=== PATIENT | male | born 1935 | race Caucasian/White ===

== ENCOUNTER 2017-09-17 08:15 | Outpatient (RCR) ==
--- NOTE | 2017-08-31 16:52 | RS.OPPTEV2 ---
Date of Note: 08/30/17 Visit #: 1 Date of Evaluation: 08/30/17 Payer Source: MEDICARE Surgery Performed?: No Treatment Diagnosis: balance problem History of Condition/Mechanism of Injury:: pt had a fall in [place] approx 4 weeks ago, pt has had increased difficulty with balance lately Prior Level of Function.....Patient was independent with: ADL's, Self Care, Ambulation/Mobility Functional Limitations: Bending, Squatting, Ambulation, Community Access/ Integration Current Subjective/complaints:: pt states he has had increased difficulty with balance as well as amb since his fall. States his arthritis "moves around" and sometimes limits his ability to stand. Treatment Side (optional): N/A *Precautions: fall precautions Medical History Medical History: Hypertension, Arthritis Surgical History: Tonsillectomy Smoking Status: Never smoker Hx Home Medications: bumetanide, cardizem, colace, lisinopril, magox, tobrol xl , k dur, xarelto Patient's Goals: be stronger, not fall Functional Outcome Measure Tinetti: 20 (29%) - G Codes & Severity Modifier G Codes & Modifier: mobility current CJ. mobility goal CI Source of G Code score: tinetti Observation - Observation Inspection: hamstring tightness BLE Posture: Forward Head, Rounded Shoulders, Increased Thoracic Kyphosis, Decreased Lumbar Lordosis Handedness: Right Gait - Gait Pattern General Gait Pattern Observation: Crouched Gait, Decrease Stride Lngth (R), Decrease Stride Lngth (L) Gait Comments: pt amb with slight increased lat sway. General Range of Motion: WFL's BUE and BLE Muscle Strength: BUE 4+/5. BLE hip flex 4/5, knee flex/ext 4+/5, ankle Df/PF 4+ /5 Palpation Palpation Findings: None/Normal Sensation - Sensation Right Upper Extremity: Intact/Normal Left Upper Extremity: Intact/Normal Right Lower Extremity: Intact/Normal Left Lower Extremity: Intact/Normal Balance - Sitting Balance Static Sitting Balance: Good Dynamic Sitting Balance: Good - Standing Balance Static Standing Balance: Fair Dynamic Standing Balance: Poor - Comments Balance Assessment Comments: TUG score 23 secs, Tinetti score 20/28 Interventions - Exercise/Activities/Manual Therapy Exercises/Activities: pt performed resisted hip flex, isometric hip add, LAQ, seated hip flex, standing hip abd, hip ext, short squats. Manual Therapy: n/a HOME EXERCISE PROGRAM: pt given written hep including: resisted hip flex, isometric hip add, LAQ, seated hip flex, standing: hip abd, hip ext, short squats - Charges Timed Code Treatment Minutes: 52 Total Treatment Time: 58 Procedures billed for this date of service:: eval med EVALUATION COMPLEXITY LEVEL EVALUATION COMPLEXITY LEVEL: HISTORY: Medium (OA, HTN, age, falls), EXAM OF BODY SYSTEMS: Medium (posture, balance, gait, strength,), CLINICAL PRESENTATION : Medium (evolving), CLINICAL DECISION MAKING: Medium Assessment Assessment: pt presents with decreased balance, increased risk of falls, decreased gait ability , decreased strength. Feel pt would benefit from skilled pT for therex for LE strengthening, balance as well as gait training to improve functional mobility Patient Education: Activity Modification, Education of Plan of Care Rehab Potential: Good Short Term Goals Goal #1: pt amb in dept with cane with no LOB and improved posture Goal to be met by: 09/13/17 Goal #2: pt with improved dyn stand balance as noted by TUG < 23 Goal to be met by: 09/13/17 Goal #3: pt with improved strength BLE 4 to 4+/5 Goal to be met by: 09/13/17 Longterm Goals Goal #1: pt amb community distance with AAD with no LOB and improved posture Goal to be met by: 09/27/17 Goal #2: pt with improved dyn stand balance as noted by tinetti score of 24/28 Goal to be met by: 09/27/17 Goal #3: pt independent with HEP Goal to be met by: 09/27/17 Goal #4: pt to report no falls since eval Goal to be met by: 09/27/17 Plan - Treatment to be Provided Procedures: Therapeutic Exercises, Gait Training, Neuromuscular Rehab, Patient Education Modalities: No Modalities - Treatment Plan Frequency: 2-3x week Duration: 4 weeks ORDER # VISITS AND/OR THROUGH DATE: 09/28/17 - Treatment Code (1) Balance problems Code(s): R26.89 - OTHER ABNORMALITIES OF GAIT AND MOBILITY (2) Muscle weakness Code(s): M62.81 - MUSCLE WEAKNESS (GENERALIZED) (3) Frequent falls Code(s): R29.6 - REPEATED FALLS
--- NOTE | 2017-09-03 16:23 | RS.OPPTDN ---
Subjective Date of Note: 09/03/17 Visit #: 2 Date of Evaluation: 08/30/17 Payer Source: MEDICARE Treatment Diagnosis: balance problem Current Subjective/complaints:: Patient reports he is using cane or walker when out in the community. States he has tried to work on initial HEP. *Precautions: fall precautions Interventions - Exercise/Activities/Manual Therapy Exercises/Activities: Patient performed isometric hip flex, isometric hip add, alt hip flex with 3#, SAQ 3#, SLR, and hip abd, all 2s/10reps. Also, red TB for resistive hip abd and hip add in hook-lying, and ankle df, all 2s/10reps. In sitting, AP and hip flex. Standing short squats, toe-ups, high side-stepping, and grapevine walking, all at handrail. Unilateral standing to challenge balance with use of handrail. Ends with stationary bike x 3 1/2mins (not in total time). Total minutes of Exercise: EX 28mins NEURO 12mins Manual Therapy: n/a HOME EXERCISE PROGRAM: pt given written hep including: resisted hip flex, isometric hip add, LAQ, seated hip flex, standing: hip abd, hip ext, short squats - Charges Timed Code Treatment Minutes: 40mins Total Treatment Time: 44mins Procedures billed for this date of service:: EX2, NEURO Assessment: Patient attentive to all instruction and seems motivated to progress with exercise and balance activities. Patient Education: Home Exercise Program, Home Safety, Activity Modification Patient demonstrates compliance with HEP?: Yes Short Term Goals Goal #1: pt amb in dept with cane with no LOB and improved posture Goal to be met by: 09/13/17 Progress towards Goal:: Progressing Goal #2: pt with improved dyn stand balance as noted by TUG < 23 Goal to be met by: 09/13/17 Goal #3: pt with improved strength BLE 4 to 4+/5 Goal to be met by: 09/13/17 Residential Goals Goal #1: pt amb community distance with AAD with no LOB and improved posture Goal to be met by: 09/27/17 Goal #2: pt with improved dyn stand balance as noted by tinetti score of 24/28 Goal to be met by: 09/27/17 Goal #3: pt independent with HEP Goal to be met by: 09/27/17 Progress towards goal: Progressing Goal #4: pt to report no falls since eval Goal to be met by: 09/27/17 Plan PLAN OF CARE EXPIRES ON:: 09/27/17 ORDER # VISITS AND/OR THROUGH DATE: 09/27/17 PLAN: Progress with strengthening and balance exercise to increase patients functional activity level.
--- NOTE | 2017-09-05 10:03 | RS.OPPTDN ---
Subjective Date of Note: 09/05/17 Visit #: 3 Date of Evaluation: 08/30/17 Payer Source: MEDICARE Treatment Diagnosis: balance problem Current Subjective/complaints:: Patient reports he is doing well with exercises and has had no LOB this week. States he is working on HEP. *Precautions: fall precautions Interventions - Exercise/Activities/Manual Therapy Exercises/Activities: In sitting, LAQ and hip flexion with 4# to each ankle, 2s/ 10reps each. In supine, isometric hip flex, isometric hip add, alt hip flex increased to 4#, SAQ increased to 4#, SLR, and hip abd, all 2s/10reps. Also, red TB for resistive hip abd and hip add in hook-lying, 2s/10reps each. Isometric trunk rotation in hook-lying with ball between knees. In sitting, AP and hip flex. Neuro: Balance [place] for Limits of Stability, Maze Control, Random Control, and Catch Game. Standing and reaching for 2# ball, including overhead. Standing short squats, hip abd, and grapevine walking, all at handrail. Walks with cane and CREOSOTING ENGINEER on straight line on floor, then backward walking. Unilateral standing to challenge balance with use of handrail. Total minutes of Exercise: EX 23mins, NEURO 20mins Manual Therapy: n/a HOME EXERCISE PROGRAM: pt given written hep including: resisted hip flex, isometric hip add, LAQ, seated hip flex, standing: hip abd, hip ext, short squats - Objective Findings Observations,measurements,etc.: Patient walks into department and carries cane part of the time. No LOB noted. - Charges Timed Code Treatment Minutes: 43mins Total Treatment Time: 45mins Procedures billed for this date of service:: EX2, NEURO Assessment: Patient able to advance with high level balance activity. Patient Education: Home Safety, Activity Modification Patient demonstrates compliance with HEP?: Yes Short Term Goals Goal #1: pt amb in dept with cane with no LOB and improved posture Goal to be met by: 09/13/17 Progress towards Goal:: Partially Met Goal #2: pt with improved dyn stand balance as noted by TUG < 23 Goal to be met by: 09/13/17 Goal #3: pt with improved strength BLE 4 to 4+/5 Goal to be met by: 09/13/17 Progress towards Goal:: Progressing Latex Fashions Designer Goals Goal #1: pt amb community distance with AAD with no LOB and improved posture Goal to be met by: 09/27/17 Progress towards goal: Progressing Goal #2: pt with improved dyn stand balance as noted by tinetti score of Goal to be met by: 09/27/17 Goal #3: pt independent with HEP Goal to be met by: 09/27/17 Progress towards goal: Progressing Goal #4: pt to report no falls since eval Goal to be met by: 09/27/17 Progress towards goal: Partially Met (Reports no falls this week) Plan PLAN OF CARE EXPIRES ON:: 09/27/17 ORDER # VISITS AND/OR THROUGH DATE: 09/27/17 PLAN: Progress strengthening and balance exercise to increase patients safety and independence with functional activity level.
--- NOTE | 2017-09-07 11:57 | RS.OPPTDN ---
Subjective Date of Note: 09/07/17 Visit #: 4 Date of Evaluation: 08/30/17 Payer Source: MEDICARE Treatment Diagnosis: balance problem Current Subjective/complaints:: Patient reports doing well with ambulation this week. Denies falls or LOB. States he continues to walk with cane in public. *Precautions: fall precautions Interventions - Exercise/Activities/Manual Therapy Exercises/Activities: In sitting, LAQ and hip flexion with 4# to each ankle, 2s/ 10reps each. In supine, isometric hip flex, isometric hip add, alt hip flex increased to 4#, SAQ increased to 4#, SLR, and hip abd, all 2s/10reps. Red theraband for ankle df and resistive hip abd in hook-lying, 2s/10reps each. Isometric trunk rotation in hook-lying with ball between knees. In sitting, overhead shoulder flex with ball. Green theraband for scap retraction. Neuro: Balance [place] for Limits of Stability, Maze Control, Random Control, Catch Game, and Static balance. Walking over short step and stepping over small objects with use of cane and PINKED EDGE SEWING MACHINE OPERATOR. Standing short squats, hip abd, and grapevine walking, all at handrail. Unilateral standing to challenge balance with use of handrail. Total minutes of Exercise: EX 25mins, NEURO 15mins Manual Therapy: n/a HOME EXERCISE PROGRAM: pt given written hep including: resisted hip flex, isometric hip add, LAQ, seated hip flex, standing: hip abd, hip ext, short squats - Charges Timed Code Treatment Minutes: 40mins Total Treatment Time: 42mins Procedures billed for this date of service:: EX2, NEURO Assessment: Patient demos fair to good balance with advanced balance activities today. He is working on HEP and reports no falls or LOB at home. Patient Education: Home Exercise Program, Home Safety, Activity Modification Patient demonstrates compliance with HEP?: Yes Short Term Goals Goal #1: pt amb in dept with cane with no LOB and improved posture Goal to be met by: 09/13/17 Progress towards Goal:: Partially Met Goal #2: pt with improved dyn stand balance as noted by TUG < 23 Goal to be met by: 09/13/17 Goal #3: pt with improved strength BLE 4 to 4+/5 Goal to be met by: 09/13/17 Progress towards Goal:: Progressing Towboat Pilot Goals Goal #1: pt amb community distance with AAD with no LOB and improved posture Goal to be met by: 09/27/17 Progress towards goal: Partially Met Goal #2: pt with improved dyn stand balance as noted by tinetti score of Goal to be met by: 09/27/17 Goal #3: pt independent with HEP Goal to be met by: 09/27/17 Progress towards goal: Partially Met Goal #4: pt to report no falls since eval Goal to be met by: 09/27/17 Progress towards goal: Partially Met (Reports no falls this week) Plan PLAN OF CARE EXPIRES ON:: 09/27/17 ORDER # VISITS AND/OR THROUGH DATE: 09/27/17 PLAN: Continue exercise and balance work progressing toward safe and independent.
--- NOTE | 2017-09-10 11:53 | RS.OPPTDN ---
Subjective Date of Note: 09/10/17 Visit #: 5 Date of Evaluation: 08/30/17 Payer Source: MEDICARE Treatment Diagnosis: balance problem Current Subjective/complaints:: Patient reports he is doing better with walking. He reports no recent falls. *Precautions: fall precautions Interventions - Exercise/Activities/Manual Therapy Exercises/Activities: In sitting, LAQ and hip flexion with 4# to each ankle and isometric hip add with ball, 2s/10reps each. In supine, isometric hip flex, isometric hip add, alt hip flex 4#, SAQ 4#, SLR, and hip abd, all 2s/10reps. Increased to green theraband for ankle df and resistive hip abd in hook-lying, 2s/10reps each. Isometric trunk rotation in hook-lying with ball between knees. In sitting, overhead shoulder flex with ball, and horizontal abd to both sides, 2s/5reps each. Increased to blue theraband for scap retraction, 2s/10reps. Standing hip abduction. Neuro: Balance [place] for Limits of Stability, Maze Control, Random Control, Catch Game, and Static balance. Walking over short step and across foam for balance work, with use of cane and REPAIRER HANDTOOLS. Standing short squats, and toe-ups while standing on foam at handrail. Total minutes of Exercise: EX 25mins, Manual Therapy: n/a HOME EXERCISE PROGRAM: pt given written hep including: resisted hip flex, isometric hip add, LAQ, seated hip flex, standing: hip abd, hip ext, short squats - Charges Timed Code Treatment Minutes: 45mins Total Treatment Time: 45mins Procedures billed for this date of service:: EX2, NEURO Assessment: Patient responds well to progression of high level balance activities. Patient Education: Home Exercise Program, Home Safety Patient demonstrates compliance with HEP?: Yes Short Term Goals Goal #1: pt amb in dept with cane with no LOB and improved posture Goal to be met by: 09/13/17 Progress towards Goal:: Met Goal #2: pt with improved dyn stand balance as noted by TUG < 23 Goal to be met by: 09/13/17 Progress towards Goal:: Progressing Goal #3: pt with improved strength BLE 4 to 4+/5 Goal to be met by: 09/13/17 Progress towards Goal:: Progressing Alf Goals Goal #1: pt amb community distance with AAD with no LOB and improved posture Goal to be met by: 09/27/17 Progress towards goal: Partially Met Goal #2: pt with improved dyn stand balance as noted by tinetti score of Goal to be met by: 09/27/17 Goal #3: pt independent with HEP Goal to be met by: 09/27/17 Progress towards goal: Partially Met Goal #4: pt to report no falls since eval Goal to be met by: 09/27/17 Progress towards goal: Partially Met (Reports no falls this week) Plan PLAN OF CARE EXPIRES ON:: 09/27/17 ORDER # VISITS AND/OR THROUGH DATE: 09/27/17 PLAN: Continue to progress strengthening and balance activity, working toward safe and independent with mobility and ambulation.
--- NOTE | 2017-09-12 15:48 | RS.OPPTDN ---
Subjective Date of Note: 09/12/17 Visit #: 6 Date of Evaluation: 08/30/17 Payer Source: MEDICARE Treatment Diagnosis: balance problem Current Subjective/complaints:: Reports he is doing better with his walking. Only using cane occasionally if he is tired or walking longer distances. *Precautions: fall precautions Interventions - Exercise/Activities/Manual Therapy Exercises/Activities: In sitting, LAQ and hip flexion increased to 5# to each ankle and isometric hip add with ball, 2s/10reps each. In supine, isometric hip flex, isometric hip add, alt hip flex 5#, SAQ 5#, SLR, and hip abd, all 2s/ 10reps. Increased to green theraband for ankle df and resistive hip abd in hook- lying, 2s/10reps each. Isometric trunk rotation in hook-lying with ball between knees. In sitting, overhead shoulder flex with ball, and horizontal abd to both sides, 2s/5reps each. Blue theraband for scap retraction, 2s/10reps. Standing hip abduction and march. Neuro: Balance [place] for Limits of Stability, Maze Control, Random Control, Catch Game, and Static balance. Walking over short step and across foam and over cones for balance work, with use of cane and CAR COOPER. At handrail, side-stepping and modified grapevine. Total minutes of Exercise: EX 24mins, NEURO 20mins Manual Therapy: n/a HOME EXERCISE PROGRAM: pt given written hep including: resisted hip flex, isometric hip add, LAQ, seated hip flex, standing: hip abd, hip ext, short squats - Charges Timed Code Treatment Minutes: 44mins Total Treatment Time: 45mins Procedures billed for this date of service:: EX2, NEURO Assessment: Patient progressing with functional ambulation and is able to advance with high level balance activity. Patient Education: Home Exercise Program, Home Safety Patient demonstrates compliance with HEP?: Yes Short Term Goals Goal #1: pt amb in dept with cane with no LOB and improved posture Goal to be met by: 09/13/17 Progress towards Goal:: Met Goal #2: pt with improved dyn stand balance as noted by TUG < 23 Goal to be met by: 09/13/17 Progress towards Goal:: Progressing Goal #3: pt with improved strength BLE 4 to 4+/5 Goal to be met by: 09/13/17 Progress towards Goal:: Progressing Veterinary Surgery Technologist Goals Goal #1: pt amb community distance with AAD with no LOB and improved posture Goal to be met by: 09/27/17 Progress towards goal: Met Goal #2: pt with improved dyn stand balance as noted by tinetti score of Goal to be met by: 09/27/17 Goal #3: pt independent with HEP Goal to be met by: 09/27/17 Progress towards goal: Partially Met Goal #4: pt to report no falls since eval Goal to be met by: 09/27/17 Progress towards goal: Partially Met (Reports no falls this week) Plan PLAN OF CARE EXPIRES ON:: 09/27/17 ORDER # VISITS AND/OR THROUGH DATE: 09/27/17 PLAN: Progress high level balance activity for safety and independence with functional mobility and ambulation.
--- NOTE | 2017-09-14 09:56 | RS.OPPTDN ---
Subjective Date of Note: 09/14/17 Visit #: 7 Date of Evaluation: 08/30/17 Payer Source: MEDICARE Treatment Diagnosis: balance problem Current Subjective/complaints:: Patient reports doing well this week and feels he is stronger. Reports no falls. *Precautions: fall precautions Interventions - Exercise/Activities/Manual Therapy Exercises/Activities: In sitting, LAQ and hip flexion increased to 5# to each ankle and isometric hip add with ball, 2s/10reps each. In supine, isometric hip flex, isometric hip add, alt hip flex 5#, SAQ 5#. Added 1 1/2# to each ankle for SLR, and hip abd, all 2s/10reps. Green theraband for ankle df and resistive hip abd in hook-lying, 2s/10reps each. Isometric trunk rotation in hook-lying with ball between knees. Resistive trunk rotation with red theraband in hook- lying. In sitting, overhead shoulder flex with ball, and horizontal abd to both sides, 2s/5reps each. Blue theraband for scap retraction, 2s/10reps. Neuro : Balance Thermostatic Controls Supervisor for Limits of Stability, Maze Control, Random Control, Catch Game, and Static balance. Walking over short step and across foam and over cones for balance work, without use of cane today but with CADDIE SUPERVISOR. Total minutes of Exercise: EX 23mins, NEURO 20mins Manual Therapy: n/a HOME EXERCISE PROGRAM: pt given written hep including: resisted hip flex, isometric hip add, LAQ, seated hip flex, standing: hip abd, hip ext, short squats - Objective Findings Observations,measurements,etc.: Patient demos improvement on Balance [place] including 96% accuracy with Random Control on Easy setting with use of handrails and 84% on Medium setting. He also advanced with obstacle course and only needs CADDIE SUPERVISOR and CGA at gait belt. - Charges Timed Code Treatment Minutes: 43mins Total Treatment Time: 45mins Procedures billed for this date of service:: EX2, NEURO Assessment: Patient progressing well and motivated to increase strength and balance. Patient Education: Home Exercise Program, Home Safety, Activity Modification Patient demonstrates compliance with HEP?: Yes Short Term Goals Goal #1: pt amb in dept with cane with no LOB and improved posture Goal to be met by: 09/13/17 Progress towards Goal:: Met Goal #2: pt with improved dyn stand balance as noted by TUG < 23 Goal to be met by: 09/13/17 Progress towards Goal:: Partially Met Goal #3: pt with improved strength BLE 4 to 4+/5 Goal to be met by: 09/13/17 Progress towards Goal:: Partially Met Line Runner Goals Goal #1: pt amb community distance with AAD with no LOB and improved posture Goal to be met by: 09/27/17 Progress towards goal: Met Goal #2: pt with improved dyn stand balance as noted by tinetti score of 24/28 Goal to be met by: 09/27/17 Progress towards goal: Progressing Goal #3: pt independent with HEP Goal to be met by: 09/27/17 Progress towards goal: Partially Met Goal #4: pt to report no falls since eval Goal to be met by: 09/27/17 Progress towards goal: Met (Reports no falls this week) Plan PLAN OF CARE EXPIRES ON:: 09/27/17 ORDER # VISITS AND/OR THROUGH DATE: 09/27/17 PLAN: Continue strengthening and high level balance work, progressing toward safe and independent functional mobility and ambulation.
--- NOTE | 2017-09-17 09:56 | RS.OPPTDN ---
Subjective Date of Note: 09/17/17 Visit #: 8 Date of Evaluation: 08/30/17 Payer Source: MEDICARE Treatment Diagnosis: balance problem Current Subjective/complaints:: Patient reports he is doing well and his balance is getting better. *Precautions: fall precautions Interventions - Exercise/Activities/Manual Therapy Exercises/Activities: In sitting, LAQ and hip flexion 4# to each ankle and isometric hip add with ball, 2s/10reps each. In supine, isometric hip flex, isometric hip add, alt hip flex 5#, SAQ 5#. Added 1 1/2# to each ankle for SLR, and hip abd, all 2s/10reps. Green theraband for ankle df and resistive hip abd in hook-lying, 2s/10reps each. Isometric trunk rotation in hook-lying with ball between knees. Resistive trunk rotation increased to green theraband in hook- lying. In sitting, overhead shoulder flex with ball, and horizontal abd to both sides, 10reps each. Blue theraband for scap retraction, 2s/10reps. Leg press 60# 20reps. Neuro: Balance Audiovisual Tech for Limits of Stability, Maze Control , Random Control, Catch Game, and Static balance. Walking over short step and across foam and over cones for balance work, without use of cane today but with RESPIRATORY CLINICIAN. Standing baseball throw with CGA only. Total minutes of Exercise: 23mins EX, 22mins NEURO Manual Therapy: n/a HOME EXERCISE PROGRAM: pt given written hep including: resisted hip flex, isometric hip add, LAQ, seated hip flex, standing: hip abd, hip ext, short squats - Charges Timed Code Treatment Minutes: 45mins Total Treatment Time: 45mins Procedures billed for this date of service:: EX2, NEURO Assessment: Patient progressing well with high level balance activity. Patient demonstrates compliance with HEP?: Yes Short Term Goals Goal #1: pt amb in dept with cane with no LOB and improved posture Goal to be met by: 09/13/17 Progress towards Goal:: Met Goal #2: pt with improved dyn stand balance as noted by TUG < 23 Goal to be met by: 09/13/17 Progress towards Goal:: Partially Met Goal #3: pt with improved strength BLE 4 to 4+/5 Goal to be met by: 09/13/17 Progress towards Goal:: Partially Met Ultrasound Supervisor Goals Goal #1: pt amb community distance with AAD with no LOB and improved posture Goal to be met by: 09/27/17 Progress towards goal: Met Goal #2: pt with improved dyn stand balance as noted by tinetti score of Goal to be met by: 09/27/17 Progress towards goal: Progressing Goal #3: pt independent with HEP Goal to be met by: 09/27/17 Progress towards goal: Partially Met Goal #4: pt to report no falls since eval Goal to be met by: 09/27/17 Progress towards goal: Met (Reports no falls this week) Plan PLAN OF CARE EXPIRES ON:: 09/27/17 ORDER # VISITS AND/OR THROUGH DATE: 09/27/17 PLAN: Continue high level balance work to progress with safety and independence with functional ambulation.
== END 2017-09-17 23:59 ==
PROVIDERS: ATTEND Family Medicine
DX: R26.89 Other abnormalities of gait and mobility (principal)

== ENCOUNTER 2017-09-21 08:24 | Outpatient (RCR) ==
--- NOTE | 2017-09-21 10:42 | RS.OPPTDN ---
Subjective Date of Note: 09/21/17 Visit #: 9 Date of Evaluation: 08/30/17 Payer Source: MEDICARE Treatment Diagnosis: balance problem Current Subjective/complaints:: Patient agrees he is doing well. He is walking without AD and reports no falls. States he feels stronger and will continue HEP. *Precautions: fall precautions Interventions - Exercise/Activities/Manual Therapy Exercises/Activities: In sitting, LAQ and hip flexion 4# to each ankle and isometric hip add with ball, 2s/10reps each. In supine, isometric hip flex, isometric hip add, alt hip flex 5#, SAQ 5#. Increased to 2# to each ankle for SLR, and hip abd, all 2s/10reps. Green theraband for ankle df and resistive hip abd in hook-lying, 2s/10reps each. Isometric trunk rotation in hook-lying with ball between knees. Resistive trunk rotation increased to green theraband in hook-lying. In sitting, overhead shoulder flex with ball, and horizontal abd to both sides, 10reps each. Green theraband for scap retraction in sitting and then in standing, 2s/10reps each. Leg press 60# 2s/20reps. Standing at handrail for toe-ups, mini-squats, march, and alt hip abd. Neuro: Balance Run Lead for Limits of Stability, Maze Control, Random Control, and Static balance. Standing while reaching for balance. Timed up and go with good balance and safety awareness. Total minutes of Exercise: EX 25mins, NEURO 15mins Manual Therapy: n/a HOME EXERCISE PROGRAM: pt given written hep including: resisted hip flex, isometric hip add, LAQ, seated hip flex, standing: hip abd, hip ext, short squats - Objective Findings Observations,measurements,etc.: TUG improved to 14 seconds with good balance and safety awareness. Tinetti score increased to 26/28 (was 20/28 on Eval). - Charges Timed Code Treatment Minutes: 40mins Total Treatment Time: 45mins Procedures billed for this date of service:: EX2, NEURO Assessment: Patient has progressed well and benefitted from treatment. He is now walking without AD and has met all treatment goals. Patient will continue HEP following discharge. Patient Education: Body/Joint mechanics, Home Exercise Program, Home Safety, Activity Modification, Education of Plan of Care Comments: Reveiwed and finalized all patient education and HEP. Patient given additional therabands and copies of HEP. Patient demonstrates compliance with HEP?: Yes Short Term Goals Goal #1: pt amb in dept with cane with no LOB and improved posture Goal to be met by: 09/13/17 Progress towards Goal:: Met Goal #2: pt with improved dyn stand balance as noted by TUG < 23 Goal to be met by: 09/13/17 Progress towards Goal:: Met Goal #3: pt with improved strength BLE 4 to 4+/5 Goal to be met by: 09/13/17 Progress towards Goal:: Met Harvest Contractor Goals Goal #1: pt amb community distance with AAD with no LOB and improved posture Goal to be met by: 09/27/17 Progress towards goal: Met Goal #2: pt with improved dyn stand balance as noted by tinetti score of 24/28 Goal to be met by: 09/27/17 Progress towards goal: Met Goal #3: pt independent with HEP Goal to be met by: 09/27/17 Progress towards goal: Met Goal #4: pt to report no falls since eval Goal to be met by: 09/27/17 Progress towards goal: Met (Reports no falls this week) Plan PLAN OF CARE EXPIRES ON:: 09/27/17 ORDER # VISITS AND/OR THROUGH DATE: 09/27/17 PLAN: Discharge with HEP.
--- NOTE | 2017-09-21 11:53 | RS.OPPTDC ---
Date of Discharge: 09/21/17 Date of Evaluation: 08/30/17 Number of Visits: 9 Treatment Diagnosis: balance problem Current Level of Function: pt amb independently with cane community distances. pt has good balance. TUG 14 secs. pt is independent with HEP. Strength improved to 4 to 4+/5. Current Complaints/Gains: pt states he feels he has gotten stronger. pt has had no falls and can walk without AD. States he is independently doing HEP. Functional Outcome Measure Tinetti: 26 - G Codes & Severity Modifier G Codes & Modifier: mobility d/c CI. mobility goal CI Source of G Code score: tinetti score Observation - Observation Posture: Forward Head, Rounded Shoulders Handedness: Right Gait - Gait Pattern Gait Comments: pt amb independently without AD in dept, carries cane with him on long distances. General Range of Motion: WFL Muscle Strength: BLE 4 to 4+/5 Interventions - Exercise/Activities/Manual Therapy Exercises/Activities: na Manual Therapy: n/a HOME EXERCISE PROGRAM: pt given written hep including: resisted hip flex, isometric hip add, LAQ, seated hip flex, standing: hip abd, hip ext, short squats - Charges Timed Code Treatment Minutes: n/a Total Treatment Time: n/a Procedures billed for this date of service:: n/a Assessment Assessment: pt has met all goals. Feels he is ready for DC. Rehab Potential: Good Short Term Goals Goal #1: pt amb in dept with cane with no LOB and improved posture Goal to be met by: 09/13/17 Progress towards Goal:: Met Goal #2: pt with improved dyn stand balance as noted by TUG < 23 Goal to be met by: 09/13/17 Progress towards Goal:: Met Goal #3: pt with improved strength BLE 4 to 4+/5 Goal to be met by: 09/13/17 Progress towards Goal:: Met [facility] Goals Goal #1: pt amb community distance with AAD with no LOB and improved posture Goal to be met by: 09/27/17 Progress towards goal: Met Goal #2: pt with improved dyn stand balance as noted by tinetti score of 24/28 Goal to be met by: 09/27/17 Progress towards goal: Met Goal #3: pt independent with HEP Goal to be met by: 09/27/17 Progress towards goal: Met Goal #4: pt to report no falls since eval Goal to be met by: 09/27/17 Progress towards goal: Met (Reports no falls this week) Plan Reason for Discharge:: All Goals Met
== END 2017-10-18 23:59 ==
PROVIDERS: ATTEND Family Medicine
DX: R26.89 Other abnormalities of gait and mobility (principal); M62.81 Muscle weakness (generalized); R29.6 Repeated falls

== ENCOUNTER 2018-02-15 08:59 | Outpatient (CLI) | END 2018-02-15 09:20 | disposition short-term general hospital (02) | LOC: AMBL 08:59 | PROVIDERS: ATTEND Internal Medicine | DX: R40.20 Unspecified coma (principal); I95.9 Hypotension, unspecified; R00.1 Bradycardia, unspecified ==

== ENCOUNTER 2018-06-13 16:11 | Emergency (ER) ==
[2018-06-13 16:16] VITALS: TEMP 98; BMI 23.7
[2018-06-13] MEDS ORDERED: SILVER NITRATE APPLICATOR TP STA (17:50)
--- NOTE | 2018-06-13 17:57 | ED.PDOC ---
General ED Provider: Dr. HUNTER GLEASON Stated Complaint: Nose bleed-Lt side. Onset this AM. On Xarelto Time Seen by Physician: 17:10 Mode of Arrival: Walk-In Information Source: Patient Exam Limitations: No limitations Primary Care Provider: HUNTER GRACE Nursing and Triage Documentation Reviewed and Agree: Yes System Inflammatory Response Syndrome: Not Applicable Sepsis Protocol: For patient's 13 years and over: Temp is 96.8 and below OR 101 and greater Pulse >90 BPM Resp >20/minute Acutely Altered Mental Status Are patient's symptoms suggestive of a new infection, such as: -Pneumonia -Skin, Soft Tissue -Endocarditis -UTI -Bone, Joint Infection -Implantable Device -Acute Abdominal Infection -Wound Infection -Meningitis -Blood Stream Catheter Infection -Unknown <HUNTER GLEASON - Last Filed: 06/13/18 20:03> ED Provider: Dr. AUDREY ALMENDAREZ Primary Care Provider: HUNTER GRACE Does patient meet sepsis criteria?: No Sepsis Protocol: For patient's 13 years and over: Temp is 96.8 and below OR 101 and greater Pulse >90 BPM Resp >20/minute Acutely Altered Mental Status Are patient's symptoms suggestive of a new infection, such as: -Pneumonia -Skin, Soft Tissue -Endocarditis -UTI -Bone, Joint Infection -Implantable Device -Acute Abdominal Infection -Wound Infection -Meningitis -Blood Stream Catheter Infection -Unknown <AUDREY ALMENDAREZ - Last Filed: 06/14/18 03:19> Chief Complaint: Nosebleed EENT Complaint Exam - Nasal Complaint/Exam Onset/Duration: This AM Symptoms Are: Still present Timing: Intermittent Initial Severity: Moderate Current Severity: Mild Location: Left Character: Light bleeding Aggravating: Reports: None Alleviating: Reports: Pressure Associated Signs and Symptoms: Denies: Nasal congestion, Bruising, Hematuria, Hematochezia, Sinus pain, Nasal discharge, Foreign body, Abnormal coags Related History: Reports: Similar episode Nasal Surgical History: Reports: None Bleeding Present At: Left nostril Foreign Body Present: No Oropharynx Findings: Active bleeding Septal Hematoma: No Differential Diagnoses: Epistaxis <HUNTER GLEASON - Last Filed: 06/13/18 20:03> Review of Systems - Review Of Systems Constitutional: Reports: No symptoms Eyes: Reports: No symptoms Ears, Nose, Mouth, Throat: Reports: No symptoms Respiratory: Reports: No symptoms Cardiac: Reports: No symptoms GI: Reports: No symptoms : Reports: No symptoms Musculoskeletal: Reports: No symptoms Skin: Reports: No symptoms Neurological: Reports: No symptoms Endocrine: Reports: No symptoms Hematologic/Lymphatic: Reports: No symptoms All Other Systems: Reviewed and Negative <HUNTER GLEASON - Last Filed: 06/13/18 20:03> Past Medical History - Past Medical History Previously Healthy: No Cardiovascular: Reports: Hypertension, A-Fib Respiratory: Reports: None Hematological: Reports: None Gastrointestinal: Reports: None Genitourinary: Reports: None Neuro/Psych: Reports: None Musculoskeletal: Reports: None Cancer: Reports: None - Surgical History General Surgical History: Reports: None - Family History Family History: Reports: None - Social History Smoking Status: Never smoker Hx Substance Use: No Alcohol Screening: Occasionally - Immunizations Tetanus Shot up to Date: No <HUNTER GLEASON Last Filed: 06/13/18 20:03> - Past Medical History Endocrine: Reports: None - Surgical History General Surgical History: Reports: None <AUDREY ALMENDAREZ Last Filed: 06/14/18 03:19> Physical Exam - Physical Exam Appearance: Thin Ill-appearing: Mild Pain Distress: None Eyes: ROXANNE, EOMI, Conjunctiva clear ENT: Ears normal, Nose normal, Oropharynx normal, Epistaxis Neck: Supple Respiratory: Airway patent, Breath sounds clear, Breath sounds equal, Respirations nonlabored Cardiovascular: RRR, Pulses normal, No rub, No murmur GI/: Soft, Nontender, No masses, Bowel sounds normal, No Organomegaly Musculoskeletal: Normal strength, ROM intact, No edema, No calf tenderness Skin: Warm, Dry, Normal color Neurological: Sensation intact, Motor intact, Reflexes intact, Cranial nerves intact, Alert, Oriented Psychiatric: Affect appropriate, Mood appropriate <HUNTER GLEASON - Last Filed: 06/13/18 20:03> Procedures - Nasal Packing/Cautery Indications: Present: Anterior epistaxis Packing/Cautery Procedure: Left, Anterior, Posterior, Rhino rocket Suction Used: No Pressure Used to Control Bleeding: Yes Medications Used: Yes: Neosynephrine Hemostasis Obtained: Yes <HUNTER GLEASON Last Filed: 06/13/18 20:03> Re-Evaluation - Re-Evaluation Status: Improved Vital Signs Stable: Yes (158/90) <AUDREY ALMENDAREZ - Last Filed: 06/14/18 03:19> Physician Notification - Case Discussed Physician Notified: Dr Almendarez Time of Notification: 19:50 (Agrees to monitor through discharge/If recurrent epistaxsis then transfer to ENT at [facility]) <HUNTER GLEASON - Last Filed: 06/13/18 20:03> - Case Discussed Physician Notified: Dr. Capellan [facility] Time of Notification: 20:28 (Would accept for transfer if not better but admit to Hospitalist. Joe bailey ) <AUDREY ALMENDAREZ - Last Filed: 06/14/18 03:19> Critical Care Note - Critical Care Note Total Time (mins): 60 <HUNTER GLEASON - Last Filed: 06/13/18 20:03> - Critical Care Note Comments: Discussed with Dr Capellan then ER physician DR Alarcon Discussed with DR Toussaint who is covering for Dr Rangel Has accepted to admit Patient on the floor with ENT consult needed. <AUDREY ALMENDAREZ - Last Filed: 06/14/18 03:19> Course - Course Hematology/Chemistry: 06/13/18 17:58 06/13/18 17:58 Vital Signs: Temp Pulse Resp BP Pulse Ox 06/13/18 16:13 98.0 F 94 H 18 199/106 H 97 <HUNTER GLEASON - Last Filed: 06/13/18 20:03> - Course Hematology/Chemistry: 06/13/18 17:58 06/13/18 17:58 Orders, Labs, Meds: Lab Review 06/13/18 06/13/18 06/13/18 17:58 17:58 17:58 WBC 11.49 H RBC 4.63 L Hgb 15.0 Hct 43.8 MCV 94.6 H MCH 32.4 H MCHC 34.2 RDW Coeff of Renetta 12.3 Plt Count 170 Immature Gran % (Auto) 0.3 Neut % (Auto) 74.3 Lymph % (Auto) 14.8 Otero % (Auto) 7.7 Eos % (Auto) 2.3 Baso % (Auto) 0.6 Immature Gran # (Auto) 0.0 Neut # (Auto) 8.5 H Lymph # (Auto) 1.7 Otero # (Auto) 0.9 Eos # (Auto) 0.3 Baso # (Auto) 0.1 PT 11.6 H INR 1.17 APTT 31.8 Sodium 132.0 L Potassium 4.71 Chloride 93.1 L Carbon Dioxide 28.1 Anion Gap 15.51 BUN 13.7 Creatinine 1.14 H Estimated GFR (MDRD) 61.00 BUN/Creatinine Ratio 12.01 Glucose 115.0 H Calcium 9.63 Total Bilirubin 1.15 AST 26.3 ALT 14.6 Alkaline Phosphatase 63.8 Total Protein 7.88 Albumin 4.37 Globulin 3.51 Albumin/Globulin Ratio 1.24 Orders Category Date Time Status CBC W/ AUTO DIFF Stat LAB 06/13/18 17:58 Completed CMP [COMPREHENSIVE METABOLIC PANEL] Stat LAB 06/13/18 17:58 Completed PARTIAL THROMBOPLASTIN TIME Stat LAB 06/13/18 17:58 Completed PT WITH INR Stat LAB 06/13/18 17:58 Completed Phenylephrine HCl [Zeb-Synephrine] MEDS 06/13/18 19:31 Discontinued 2 spray NORA ONCE STA Silver Nitrate Applicator MEDS 06/13/18 17:50 Discontinued 3 each TP ONCE STA Medications Discontinued Medications Generic Name Dose Route Start Last Admin Trade Name Ethanq PRN Reason Stop Dose Admin Phenylephrine HCl 2 spray 06/13/18 19:31 06/13/18 19:49 Zeb-Synephrine NORA 06/13/18 19:32 2 spray ONCE STA Administration Silver Nitrate 3 each 06/13/18 17:50 06/13/18 18:09 Silver Nitrate Applicator TP 06/13/18 17:51 Not Given ONCE STA Vital Signs: Temp Pulse Resp BP Pulse Ox 06/13/18 16:13 98.0 F 94 H 18 199/106 H 97 <AUDREY ALMENDAREZ - Last Filed: 06/14/18 03:19> Departure - Departure Time of Disposition: 18:15 Pt referred to PMD for follow-up: Yes (1 week) IPMP verified?: No Disposition Discussed With: Patient, Family <HUNTER GLEASON - Last Filed: 06/13/18 20:03> - Departure Time of Disposition: 20:50 Pt. Stabilized Within Hospital's Capabilities/Transferred To: [facility] Transfer Form Completed: Yes <AUDREY ALMENDAREZ - Last Filed: 06/14/18 03:19> - Departure Disposition: TSF SHORT-TRM HOSP Discharge Problem: Epistaxis Instructions: Nosebleed (ED) Condition: Good Additional Instructions: Hold Xarelto for 1 dose then resume If becomes recurrent and fails to stop; return to ER and go to [facility] Follow up Dr Grace in next 24 hrs Allergies/Adverse Reactions: Allergies No Known Allergies Allergy (Unverified 06/13/18 16:12) Home Medications: Ambulatory Orders Bumetanide [Bumex] 1 mg PO DAILY 06/13/18 Docusate Sodium [Colace] 100 mg PO DAILY 06/13/18 Lisinopril [Zestril] 10 mg PO DAILY 06/13/18 Magnesium Oxide [Mag-Ox] 400 mg PO DAILY 06/13/18 Potassium Chloride [K-Dur] 10 meq PO DAILY 06/13/18 Rivaroxaban [Xarelto] 20 mg PO DAILY 06/13/18 Additional Information: 183 Patient monitored and bleeding stopped; Hemostasis obtained without operative intervention. 1844 re evaluated/ Irrigation distal lt nares with normal saline and gauze/ Rhinorocket utilized. Hemostasis 1934: Breakthrough bleeding. Initial nasal tampon removed. Secondary rhinorocket inserted and Neosynephrine utilized 1954; Hemostasis obtained. no active bleeding Discussed with patient and his son/observe 30 min/if remains controlled then discharge to home Discussed with Dr Almendarez -will monitor patient /If recurrent refer ENT at [facility] <HUNTER GLEASON - Last Filed: 06/13/18 20:03>
[2018-06-13] MEDS ORDERED: NEO-SYNEPHRINE NAS STA (19:31)
[2018-06-13 20:50] VITALS: BP 158/90
== END 2018-06-13 21:53 | disposition short-term general hospital (02) ==
LOC: ED 16:11
DX: R04.0 Epistaxis (principal); Z79.01 Long term (current) use of anticoagulants
CPT/HCPCS: 36415; 80053; 85025; 85610; 85730; 99285